=== PATIENT | male | born 1975 | race Caucasian/White ===

== ENCOUNTER 2017-02-05 14:01 | Emergency (ER) | payer MEDICARE, MEDICAID ==
[~2017-02-05] VITALS: Ht 157.5 cm; Wt 50.0 kg
[~2017-02-05 14:01] MED LIST: LAMICTAL
[2017-02-05 14:13] VITALS: BP 137/86; PULSE 94; RESP 18; O2SAT 98
--- NOTE | 2017-02-05 15:56 | ED.REPORT ---
HPI-General Illness Date of Service Feb 05, 2017 ED Provider: Edgar Clancy MD Pt is a 41 year old male with a hx of brain cancer as a child presenting to the ED complaining of 8/10 sharp mid-lower back pain with movement onset 3 days ago while walking around. He denies any previous similar symptoms. He denies any other new symptoms at this time such as fever, chills, chest pain, SOB, hematuria, bloody stool, incontinence, headache, numbness, diaphoresis, focal weakness. Denies any recent fall or other trauma. Nursing Notes Stated Complaint: BACK PAIN Chief Complaint: Back Pain or Injury Nursing Notes Reviewed: Yes Allergies: Coded Allergies: No Known Allergies (Unverified Allergy, Unknown, 11/28/13) bee venom (honey bee) (Verified Allergy, Unknown, swelling, 03/04/14) Miscellaneous Medications ([Lamictal]) General Time Seen by MD: 15:51 Chief Complaint Back pain Hx Obtained From: Patient Arrived By: Walk-in Sudden in Onset?: No Onset Occurred: 3 days ago Symptom Duration: Since onset Location: : Back Quality: Painful Severity: Current: Pain level 8 out of 10 Severity: Maximum: Severe Recent Healthcare: No recent doctor visit, No recent hospitalization Similar Sx Previous: No Past Medical History Past Medical History Brain tumor as a child- had radiation therapy Past Surgical History Brain Cancer as a child Smoking History Current Every Day Smoker Social History Lives with his brother Alcohol Use: Denies alcohol use Drug Use: Denies drug use Occupation lives with Mom, not working Ambulatory Status Independent Review of Systems Full Review of Systems Constitutional: Denies: Chills, Fever Eyes: Denies: Diplopia Ears / Nose / Throat: Denies: Hearing loss bilateral Respiratory: Denies: Shortness of breath Cardiovascular: Denies: Chest pain GI: Denies: Abdominal pain, Bloody/tarry stool, Nausea, Vomiting Male: Denies Hematuria Musculoskeletal: Reports: Back pain Skin: Denies Diaphoresis, Denies Rash Neurologic: Denies: Bladder dysfunction, Bowel dysfunction, Focal weakness, Headache Complete sys rev & neg: except as marked. Physical Exam Nursing note and vitals reviewed. Constitutional: Well-developed, well-nourished. Not diaphoretic. Head: Normocephalic and atraumatic. Mouth/Throat: Oropharynx is clear and moist. No oropharyngeal exudate. Eyes: EOM are normal. Pupils are equal, round, and reactive to light. Neck: Supple, no tracheal deviation. Cardiovascular: Normal rate, regular rhythm. Equal and intact distal pulses throughout. Pulmonary/Chest: Effort normal and breath sounds normal. No respiratory distress. Abdominal: Soft. No distension. There is no tenderness, rebound, or guarding. Bowel sounds present. Musculoskeletal: Range of motion grossly intact, moving all extremities. No edema or tenderness appreciated. Back: No cervical tenderness or lumbar tenderness. He does have some paraspinal thoracic tenderness. No step-offs. Neurological: AOx3. Grossly nonfocal exam. Strength and sensation intact and equal to bilateral upper and lower extremities. Skin: Warm and dry, no rashes or pallor appreciated. Has what appears to be a lipoma on the left side of his back next to the scapula, no erythema. Non tender. Psychiatric: Appropriate mood and affect. Behavior appears normal. Vital Signs Vital Signs Date Time Temp Pulse Resp B/P Pulse Ox O2 Delivery O2 Flow Rate FiO2 02/05/17 21:20 92 22 134/85 100 Room Air 02/05/17 20:26 69 18 128/89 99 Room Air 02/05/17 18:49 60 17 121/81 97 Room Air 02/05/17 14:13 36.7 94 18 137/86 98 Room Air Initial VS: Reviewed Interpretation & Diagnostics THORACIC SPINE MRI: IMPRESSION: 1. Mild degenerative changes in the thoracic spine with no evidence of fracture or mass to suggest metastatic disease. 2. Very small linear area of increased T2 signal in the anterior central spinal cord at the T4-5 level may represent a very small syrinx or less likely an area of spinal cord malacia. There is no abnormal enhancement or evidence of a lesion at this site. Please correlate for any clinical evidence of pathology at this level. Recommend a followup thoracic spine MRI with and without contrast in 3 months. 3. Fatty mass in the subcutaneous tissues of the posterior left paracentral chest wall most consistent with a benign lipoma. 4. Findings discussed by telephone ([phone]) with Dr. Clancy at 20:28 on 02/05/2017. Dictated by: Bubba Newell M.D. on 02/05/2017 at 20:08 Lab Results Interpretation Result Diagram: 02/05/17 1745 02/05/17 1745 Test 02/05/17 17:45 White Blood Count 6.9th/mm3 (3.8-10.1) Red Blood Count 5.13mil/mm3 (4.40-5.80) Hemoglobin 15.5g/dL (13.8-17.2) Hematocrit 43.2% (41.0-50.0) Mean Corpuscular Volume 84.2fL (81-100) Mean Corpuscular Hemoglobin 30.2pg (27.0-35.0) Mean Corpuscular Hemoglobin Concent 35.9% (32.0-37.0) Red Cell Distribution Width 12.7% (12.3-15.4) Platelet Count 244bil/L (150-400) Neutrophils (%) (Auto) 39.0% (40-74) Lymphocytes (%) (Auto) 41.9% (14-46) Monocytes (%) (Auto) 11.6% (4-12) Eosinophils (%) (Auto) 6.5% (0-5) Basophils (%) (Auto) 0.9% (0-3) Sodium Level 135mEq/L (134-144) Potassium Level 4.2mEq/L (3.5-5.2) Chloride Level 97mEq/L (97-108) Carbon Dioxide Level 22mmol/L (18-29) Blood Urea Nitrogen 9mg/dL (6-24) Creatinine 0.69mg/dL (0.76-1.27) Estimat Glomerular Filtration Rate 133mL/min (>59) Glucose Level 90mg/dL (60-99) Calcium Level 9.4mg/dL (8.5-10.1) X-Ray Interpretation Xray Interpretation: XRAY THORACIC SPINE: IMPRESSION: 1. No acute fracture. No osseous lesion. If clinical suspicion and/or symptoms persist, further assessment with repeat plainfilms, or advanced imaging (e.g., MRI with and without intravenous contrast) may be helpful for further assessment. 2. Multilevel degenerative disc disease. Dictated by: Jenny Alcazar M.D. on 02/05/2017 at 18:48 Interpretation / Wet Read by: Interpret - Radiologist Re-Eval/Medical Decision Med Decision/Clinical Course In summary, 41-year-old male presenting to the ED for evaluation of mid thoracic back pain. He is somewhat of a poor historian, which limits his history, however does have a known history of "brain cancer" when he was younger. Differential includes strain, fracture, cord impingement, ACS, musculoskeletal etiology, etc. He has a normal neurologic exam. He is not having any chest pain whatsoever and the back pain does not radiate through to his chest. No dyspnea. BMP and CBC grossly within normal limits. MRI obtained and shows what appears to be a lipoma next to his left scapula, as well as a possible very small syrinx versus spinal malacia. This is unlikely to be the source of his pain at this time and the rest of the MRI read is as above. He will need follow-up as an outpatient for this. I discussed the above with the patient, as well as the need for very close follow-up. On reassessment, patient appears to be feeling better. Given this, reasonable to discharge home with very careful return precautions, PCP follow-up in the next 1 -2 days. Patient agreeable to the plan as stated, no further questions. Time of Eval: 19:30 Patient Status: Condition improved Re-Evaluation/Progress Note: Informed pt of x ray results and discussed plan for MRI. Pt understands and agrees. Counseled Regarding: Diagnosis, Lab results, Need for follow-up, When/why to return to ED Discharge & Departure Primary Impression: Strain of thoracic region Encounter type: initial encounter Qualified Code: S29.019A - Strain of muscle and tendon of unspecified wall of thorax, initial encounter Additional Impressions: Syrinx Lipoma Lipoma location: other site Qualified Code: D17.79 - Benign lipomatous neoplasm of other sites Disposition: Home Discharge Condition All VS Reviewed: Yes Condition: Improved Patient Instructions: Lipoma (ED), Thoracic Back Strain (ED), Thoracic Pain (ED ) Additional Instructions: Thank you for allowing us to be a part of your care in the ED today. Your emergency department results, including an MRI scan, are largely reassuring. I do not think that there is an emergent cause for your symptoms today that would require admission to the hospital; however, a clear cause of your symptoms was not identified. You do have a lipoma on your back, as well as a finding on your MRI called a syrinx or spinal malacia - I do not think that these are responsible for your symptoms, though you will need a follow up followup thoracic spine MRI in 3 months. It is extremely important that you discuss these findings with your regular doctor. Please schedule a follow up appointment with your primary care physician tomorrow for a recheck. Discuss your back pain, your MRI findings, and the lipoma on your back. Please return to the emergency department for any new or worsening symptoms including any bowel or bladder incontinence, urinary retention, nausea, vomiting , abdominal pain, shortness of breath, chest pain, one sided weakness/numbness, fevers, or chills, or if there's anything else of concern to you. Referrals: Frederick Hooper MD (PCP) [place] Attestation Portions of this note were transcribed by Roxy Ramirez. I, Dr. Clancy personally performed the history, physical exam and medical decision-making; I reviewed and confirmed the accuracy of the information in the transcribed note. Signed by: Prosper Mcnair, 02/05/2017. copies to: Frederick Hooper MD, William B MD Feb 05, 2017 15:56 ROXY RAMIREZ Feb 05, 2017 17:28
[2017-02-05 18:00] LABS: BASOPHILS % (AUTO) 0.9 % (0-3); EOSINOPHILS % (AUTO) 6.5 % (0-5); MONOCYTES % (AUTO) 11.6 % (4-12); Mean Corpuscular Hemoglobin 30.2 pg (27.0-35.0); Mean Corpuscular Volume 84.2 fL (81-100); Platelet Count 244 bil/L (150-400)
[2017-02-05 18:49] VITALS: BP 121/81; PULSE 60; RESP 17; O2SAT 97
--- NOTE | 2017-02-05 18:51 | DRSVH ---
PROCEDURE: X-RAY THORACIC SPINE, 2 VIEWS INDICATIONS: back pain TECHNIQUE: 2 views of the thoracic spine were acquired. COMPARISON: None. FINDINGS: Bones: No fractures or dislocations. No suspicious bony lesions. Visualized ribs are intact. Multil evel endplate osteophytes are present throughout the thoracic spine. Soft tissues: No paravertebral stripe thickening. IMPRESSION: 1. No acute fracture. No osseous lesion. If clinical suspicion and/or symptoms persist, further asses sment with repeat plainfilms, or advanced imaging (e.g., MRI with and without intravenous contrast) m ay be helpful for further assessment. 2. Multilevel degenerative disc disease. Dictated by: Jenny Alcazar M.D. on 02/05/2017 at 18:48 Approved by: Jenny Alcazar M.D. on 02/05/2017 at 18:49
[2017-02-05 20:26] VITALS: BP 128/89; PULSE 69; RESP 18; O2SAT 99
--- NOTE | 2017-02-05 20:34 | DRSVH ---
PROCEDURE: MRI THORACIC SPINE WITH AND WITHOUT CONTRAST ([id number]) INDICATIONS: severe thoracic pain w/ hx cancer; also w/ mass TECHNIQUE: Noncontrast sagittal T1 spin echo and T2 fast spin echo, sagittal STIR, axial T1 and T2 fast spin ech o through the thoracic spine. After the administration of contrast, axial and sagittal T1 spin echo with fat saturation through the thoracic spine. COMPARISON: 02/05/2017. FINDINGS: Image quality: degraded by motion but diagnostic. Alignment and curvature: There is normal bony alignment. Marrow: Mild increased T2 signal in the vertebral body endplates anteriorly at T5-6. Otherwise brook ow is of normal overall signal. No acute vertebral body compression fractures. There is multilevel d isc signal loss with minimal vertebral body endplate irregularity greatest at T7-8 and T10-11 consist ent with degenerative change. Minimal broad-based posterior disc bulge at T7-8. Spinal cord: There is minimal increased T2 signal in the anterior central aspect of the spinal cord measuring 2 x 1 mm extending 1.5 mm (se 5 im 7) at the T4-5 level. Otherwise visualized spinal cord is of normal signal and size, without abnormal enhancement. Paraspinous soft tissues: No paravertebral masses or abnormal enhancement. There is a T1 hyperinten se T2 hypointense oval circumscribed mass with no associated enhancement in the subcutaneous tissues of the left paracentral upper chest measuring 6.5 x 1.5 CM most consistent with a benign lipoma. Miscellaneous: Central canal and foramina appear widely patent at all scanned levels. IMPRESSION: 1. Mild degenerative changes in the thoracic spine with no evidence of fracture or mass to suggest me tastatic disease. 2. Very small linear area of increased T2 signal in the anterior central spinal cord at the T4-5 leve l may represent a very small syrinx or less likely an area of spinal cord malacia. There is no abnor mal enhancement or evidence of a lesion at this site. Please correlate for any clinical evidence of p athology at this level. Recommend a followup thoracic spine MRI with and without contrast in 3 month s. 3. Fatty mass in the subcutaneous tissues of the posterior left paracentral chest wall most consisten t with a benign lipoma. 4. Findings discussed by telephone ([phone]) with Dr. Clancy at 20:28 on 02/05/2017. Dictated by: Bubba Newell M.D. on 02/05/2017 at 20:08 Approved by: Bubba Newell M.D. on 02/05/2017 at 20:32
[2017-02-05 21:20] VITALS: BP 134/85; PULSE 92; RESP 22; O2SAT 100
== END 2017-02-05 21:21 | disposition home or self-care (01) ==
LOC: SED 14:01
DX: S29.019A Strain of muscle and tendon of unspecified wall of thorax, initial encounter (principal); X50.9XXA Other and unspecified overexertion or strenuous movements or postures, initial encounter; Y93.89 Activity, other specified; Y92.89 Other specified places as the place of occurrence of the external cause; Y99.8 Other external cause status; G95.0 Syringomyelia and syringobulbia; D17.79 Benign lipomatous neoplasm of other sites; F17.200 Nicotine dependence, unspecified, uncomplicated
CPT/HCPCS: 36415; 72070; 72157; 80048; 85025; 99284; A9585